=== PATIENT | female | born 1995 | race Two or more races ===

== ENCOUNTER 2020-10-15 15:58 | Emergency (ER) | payer OTHER ==
[~2020-10-15] VITALS: Ht 157.5 cm; Wt 49.0 kg
[2020-10-15] MEDS ORDERED: PRENATABS FA T1 EACH (16:27)
[2020-10-15] MEDS ORDERED: OSEL75CA PO (22:03)
== END 2020-10-15 22:42 ==
LOC: ER 15:58
DX: O26.892 Other specified pregnancy related conditions, second trimester (principal); R10.2 Pelvic and perineal pain; J10.1 Influenza due to other identified influenza virus with other respiratory manifestations; Z3A.17 17 weeks gestation of pregnancy

== ENCOUNTER 2020-11-27 15:26 | Emergency (ER) | payer OTHER ==
[~2020-11-27] VITALS: Ht 157.5 cm; Wt 50.3 kg
[~2020-11-27 15:26] MED LIST: OSEL75CA PO; PRENATABS FA T1 EACH
[2020-11-27] MEDS ORDERED: DUI500 PO (19:26)
== END 2020-11-27 19:28 | disposition home or self-care (01) ==
LOC: ER 15:26
DX: O98.512 Other viral diseases complicating pregnancy, second trimester (principal); Z03.818 Encounter for observation for suspected exposure to other biological agents ruled out; N39.0 Urinary tract infection, site not specified

== ENCOUNTER 2020-12-31 22:09 | Emergency (ER) | payer OTHER ==
[~2020-12-31] VITALS: Ht 157.5 cm; Wt 53.1 kg
[~2020-12-31 22:09] MED LIST changes: +DUI500 PO
[2021-01-01] MEDS ORDERED: OSEL75CA PO (02:05)
[2021-01-01] MEDS ORDERED: ACETAMINOPHEN650 M2 PO (02:05)
== END 2021-01-01 02:24 | disposition home or self-care (01) ==
LOC: ER 22:09
DX: J10.89 Influenza due to other identified influenza virus with other manifestations (principal); N39.0 Urinary tract infection, site not specified; Z03.818 Encounter for observation for suspected exposure to other biological agents ruled out

== ENCOUNTER 2021-02-06 20:11 | Emergency (ER) | payer OTHER ==
[~2021-02-06] VITALS: Ht 157.5 cm; Wt 56.2 kg
[~2021-02-06 20:11] MED LIST changes: +ACETAMINOPHEN650 M2 PO
[2021-02-07] MEDS ORDERED: CEPHALEXIN500 MG PO (01:29)
== END 2021-02-07 01:45 ==
LOC: ER 20:11
DX: N39.0 Urinary tract infection, site not specified (principal); Z03.818 Encounter for observation for suspected exposure to other biological agents ruled out

== ENCOUNTER 2021-02-20 16:20 | Inpatient (IN) | payer OTHER ==
[~2021-02-20] VITALS: Ht 157.5 cm; Wt 56.7 kg
[~2021-02-20 16:20] MED LIST changes: +CEPHALEXIN500 MG PO
[2021-02-20] MEDS ORDERED: ATABEX DHA 200200 MG PO (16:33)
[2021-02-20] MEDS ORDERED: INFED50 MG/ML IJ (16:37)
== END 2021-02-23 13:47 | disposition home or self-care (01) | DRG 833 ==
LOC: OBS/DEL 16:20 → LDR 18:20 → OB/GYN 02-22 10:32
PROVIDERS: ADMIT Obstetrics & Gynecology; ATTEND Obstetrics & Gynecology
PROC: 4A1HXFZ Monitoring of Products of Conception, Cardiac Rhythm, External Approach (ICD-10-PCS; principal; 2021-02-20)
DX: O23.03 Infections of kidney in pregnancy, third trimester (principal); Z3A.35 35 weeks gestation of pregnancy

== ENCOUNTER 2021-03-04 12:23 | Inpatient (IN) | payer OTHER ==
[~2021-03-04] VITALS: Ht 157.5 cm; Wt 3.2 kg
[~2021-03-04 12:23] MED LIST changes: +ATABEX DHA 200200 MG PO; +INFED50 MG/ML IJ
[2021-03-04] MEDS ORDERED: DUI500 PO (13:51)
[2021-03-04] MEDS ORDERED: IRON18 MG (13:52)
[2021-03-07] MEDS ORDERED: FAMOTIDINE40 MG (08:20)
[2021-03-07] MEDS ORDERED: PROFERRIN-FORT1 EACH (08:20)
[2021-03-07] MEDS ORDERED: ATABEX OB TABL1 EACH (08:21)
== END 2021-03-07 15:27 | disposition home or self-care (01) | DRG 788 ==
LOC: OB/GYN 12:23 → LDR 12:23 → OB/GYN 16:21
PROVIDERS: ADMIT Obstetrics & Gynecology; ATTEND Obstetrics & Gynecology
PROC: 4A1HXCZ Monitoring of Products of Conception, Cardiac Rate, External Approach (ICD-10-PCS; 2021-03-04)
PROC: 10D00Z1 Extraction of Products of Conception, Low, Open Approach (ICD-10-PCS; principal; 2021-03-04 14:30)
DX: O32.1XX0 Maternal care for breech presentation, not applicable or unspecified (principal); Z3A.37 37 weeks gestation of pregnancy; Z20.822 Contact with and (suspected) exposure to COVID-19; Z37.0 Single live birth

== ENCOUNTER 2022-06-27 13:35 | Outpatient (CLI) | payer OTHER ==
[~2022-06-27 13:35] MED LIST changes: +ATABEX OB TABL1 EACH; +FAMOTIDINE40 MG; +IRON18 MG; +PROFERRIN-FORT1 EACH
== END 2022-06-27 15:00 | disposition home or self-care (01) ==
LOC: PRENATAL 13:35
PROVIDERS: ATTEND Obstetrics & Gynecology Maternal & Fetal Medicine
DX: O36.80X0 Pregnancy with inconclusive fetal viability, not applicable or unspecified (principal); Z3A.12 12 weeks gestation of pregnancy

== ENCOUNTER 2022-08-04 11:26 | Emergency (ER) | payer OTHER ==
[~2022-08-04] VITALS: Ht 157.5 cm; Wt 49.9 kg
[2022-08-04] MEDS ORDERED: MACRODANTIN100 M1 PO (14:18)
== END 2022-08-04 14:37 | disposition home or self-care (01) ==
LOC: ER 11:26
DX: O23.42 Unspecified infection of urinary tract in pregnancy, second trimester (principal); N39.0 Urinary tract infection, site not specified; Z3A.18 18 weeks gestation of pregnancy

== ENCOUNTER 2022-08-21 09:27 | Outpatient (CLI) | payer OTHER ==
[~2022-08-21 09:27] MED LIST changes: +MACRODANTIN100 M1 PO
== END 2022-08-21 10:35 | disposition home or self-care (01) ==
LOC: PRENATAL 09:27
PROVIDERS: ATTEND Obstetrics & Gynecology Maternal & Fetal Medicine
DX: O35.9XX0 Maternal care for (suspected) fetal abnormality and damage, unspecified, not applicable or unspecified (principal); O35.3XX0 Maternal care for (suspected) damage to fetus from viral disease in mother, not applicable or unspecified; O34.219 Maternal care for unspecified type scar from previous cesarean delivery; Z3A.20 20 weeks gestation of pregnancy

== ENCOUNTER 2022-11-13 10:50 | Outpatient (CLI) | payer OTHER | END 2022-11-13 12:19 | disposition home or self-care (01) | LOC: PRENATAL 10:50 | PROVIDERS: ATTEND Obstetrics & Gynecology Maternal & Fetal Medicine | DX: O26.849 Uterine size-date discrepancy, unspecified trimester (principal); O36.8199 Decreased fetal movements, unspecified trimester, other fetus; O34.219 Maternal care for unspecified type scar from previous cesarean delivery; Z3A.32 32 weeks gestation of pregnancy ==

== ENCOUNTER 2022-11-28 16:31 | Outpatient (CLI) | payer OTHER | END 2022-11-29 21:30 | disposition home or self-care (01) | LOC: OBS/DEL 16:31 | PROVIDERS: ATTEND Obstetrics & Gynecology | DX: O21.2 Late vomiting of pregnancy (principal); R19.7 Diarrhea, unspecified; Z3A.34 34 weeks gestation of pregnancy ==

== ENCOUNTER 2022-12-21 08:58 | Inpatient (IN) | payer OTHER ==
[~2022-12-21] VITALS: Ht 157.5 cm; Wt 2.7 kg
[2022-12-21 10:33] LABS: HEMOGLOBIN 11.4 g/dL (12.0-15.00); MEAN CELL VOLUME 90.4 fL (80.00-100.00); MEAN CORPUSCULAR HEMOGLOBIN 30.4 pg (27.00-32.0); MEAN CORPUSCULAR HGB CONC 33.6 g/dl (32.0-36.0); PLATELET COUNT 284 K/uL (150-450); RED BLOOD COUNT 3.76 M/uL (4.00-6.00); RED CELL DISTRIBUTION WIDTH 12.9 % (11.5-14.5)
[2022-12-21 10:43] LABS: PH,URINE 6.5 (5.0-8.0); URINE APPEARANCE Cloudy; URINE BILIRRUBIN Negative (NEGATIVE); URINE BLOOD Negative; URINE COLOR Yellow; URINE GLUCOSE Negative (NEGATIVE); URINE LEUKOCYTE Large; URINE NITRATE Positive; URINE PROTEIN Trace (NEGATIVE); URINE UROBILINOGEN 0.2 E.U./dl
[2022-12-21 10:45] LABS: URINE EPITHELIAL CELLS 21.6 uL (0.0-38.8); URINE RBC 7.9 uL (0.0-20.8); URINE WBC 717.2 uL (0.0-23.2)
[2022-12-21 10:50] LABS: URINE BACTERIA > 9821.2 uL (0.0-1933)
[2022-12-21 11:02] LABS: INR 1.02; PARTIAL THROMBOPLASTIN TIME 31.1 SECONDS (22.0-34.0); PROTHROMBIN TIME 10.7 SECONDS (9.0-11.5)
[2022-12-26 15:25] LABS: ABG pCO2 52.6 mmHg (35-45); BASE EXCESS -3.2 mmol/l; BICARBONATE 24.2 mmol/l (23-25); SaO2 40.4 %; Tco2 25.8 mmol/l
[2022-12-26 15:38] LABS: o2 21 %
[2022-12-26 20:51] LABS: HEMATOCRIT 35.5 % (36.0-45.00); HEMOGLOBIN 11.8 g/dL (12.0-15.00); MEAN CELL VOLUME 88.6 fL (80.00-100.00); MEAN CORPUSCULAR HEMOGLOBIN 29.6 pg (27.00-32.0); MEAN CORPUSCULAR HGB CONC 33.4 g/dl (32.0-36.0); PLATELET COUNT 294 K/uL (150-450); RED CELL DISTRIBUTION WIDTH 12.6 % (11.5-14.5)
== END 2022-12-29 13:44 | disposition home or self-care (01) | DRG 788 ==
LOC: O/R 12-26 07:40 → OB/GYN 12-26 08:57
PROVIDERS: ADMIT Obstetrics & Gynecology; ATTEND Obstetrics & Gynecology
PROC: 4A1HXCZ Monitoring of Products of Conception, Cardiac Rate, External Approach (ICD-10-PCS; 2022-12-26)
PROC: 10D00Z1 Extraction of Products of Conception, Low, Open Approach (ICD-10-PCS; principal; 2022-12-26 09:15)
DX: O34.211 Maternal care for low transverse scar from previous cesarean delivery (principal); Z3A.39 39 weeks gestation of pregnancy; Z37.0 Single live birth; Z20.822 Contact with and (suspected) exposure to COVID-19